=== PATIENT | female | born 1985 | race Caucasian/White ===

== ENCOUNTER 2017-12-01 08:52 | Emergency (ER) | payer MEDICAID ==
[2017-12-01 08:52] VITALS: BMI 29.0
[2017-12-01 09:21] VITALS: BP 120/73; PULSE 81; RESP 17; TEMP 97.6; O2SAT 99
--- NOTE | 2017-12-01 09:49 | ED PDOC ---
HPI: Chest Pain Time Seen by Provider: 12/01/17 09:32 Chief Complaint (Nursing): Chest Pain Chief Complaint (Provider): Chest pain History Per: Patient History/Exam Limitations: no limitations Onset/Duration Of Symptoms: Days (last night) Current Symptoms Are (Timing): Still Present Associated Symptoms: Other (nonproductive cough). denies: Dyspnea Exacerbating Factors: Deep Breathing (inspiration) Additional Complaint(s): Harshal Cedeno is a 32 year old female, with no significant past medical history, who presents to the emergency department complaining of left sided chest pain onset since last night. Patient states pain is associated with nonproductive cough and worsens on inspiration. She denies any fever, chills or shortness of breath. No further medical complaints. PMD: None provided. Past Medical History Reviewed: Historical Data, Nursing Documentation, Vital Signs Vital Signs: Last Vital Signs Temp 97.6 F 12/01/17 09:18 Pulse 81 12/01/17 09:18 Resp 17 12/01/17 09:18 BP 120/73 12/01/17 09:18 Pulse Ox 99 12/01/17 09:18 - Medical History PMH: No Chronic Diseases - Surgical History Surgical History: Appendectomy - Family History Family History: States: Unknown Family Hx - Home Medications Home Medications: Ambulatory Orders Medication Instructions Recorded oxyCODONE/Acetaminophen [Percocet 1 tab PO Q4 #0 tab 09/27/14 5/325 mg Tab] Cyclobenzaprine [Cyclobenzaprine 10 mg PO Q8 PRN #30 tab 03/03/16 HCl] Tramadol HCl [Ultram] 50 mg PO BID PRN #30 tablet 03/03/16 Albuterol HFA [Ventolin HFA 90 2 puff IH Q4H #1 puff 12/01/17 mcg/actuation (8 g)] Azithromycin [Zithromax] 250 mg PO DAILY #6 tab 12/01/17 - Allergies Allergies/Adverse Reactions: Allergies Allergy/AdvReac Type Severity Reaction Status Date / Time aspirin Allergy HEADACHE Verified 03/03/16 18:08 Review of Systems ROS Statement: Except As Marked, All Systems Reviewed And Found Negative Constitutional: Negative for: Fever, Chills Cardiovascular: Positive for: Chest Pain (left sided) Respiratory: Positive for: Cough (nonproductive). Negative for: Shortness of Breath Physical Exam - Reviewed Nursing Documentation Reviewed: Yes Vital Signs Reviewed: Yes - Physical Exam Appears: Positive for: No Acute Distress Head Exam: Positive for: ATRAUMATIC, NORMOCEPHALIC Skin: Positive for: Normal Color, Warm, Dry Eye Exam: Positive for: Normal appearance, EOMI, PERRL ENT: Positive for: Normal ENT Inspection Neck: Positive for: Painless ROM Cardiovascular/Chest: Positive for: Regular Rate, Rhythm. Negative for: Murmur Respiratory: Positive for: Normal Breath Sounds. Negative for: Respiratory Distress Gastrointestinal/Abdominal: Positive for: Normal Exam, Soft. Negative for: Tenderness Back: Positive for: Normal Inspection. Negative for: L CVA Tenderness, R CVA Tenderness, Vertebral Tenderness Extremity: Positive for: Normal ROM (upper and lower extremities). Negative for: Tenderness, Calf Tenderness, Deformity, Swelling Neurologic/Psych: Positive for: Alert, Oriented, Gait (steady). Negative for: Motor/Sensory Deficits - ECG O2 Sat by Pulse Oximetry: 99 (RA) Pulse Ox Interpretation: Normal Medical Decision Making Medical Decision Making: Time: 09:32 Initial Plan: --Chest two views (PA/LAT) [RAD] --Reevaluation ----- Scribe Attestation: Documented by Ángel Silva, acting as a scribe for Alexi Simon MD. Provider Scribe Attestation: All medical record entries made by the Scribe were at my direction and personally dictated by me. I have reviewed the chart and agree that the record accurately reflects my personal performance of the history, physical exam, medical decision making, and the department course for this patient. I have also personally directed, reviewed, and agree with the discharge instructions and disposition. Disposition - Clinical Impression Clinical Impression: Upper respiratory infection - Patient ED Disposition Is Patient to be Admitted: No Counseled Patient/Family Regarding: Studies Performed, Diagnosis, Need For Followup, Rx Given - Disposition Referrals: Dolly Rushing MD [Primary Care Provider] - Disposition: Routine/Home Disposition Time: 10:14 Condition: FAIR Prescriptions: Albuterol HFA [Ventolin HFA 90 mcg/actuation (8 g)] 2 puff IH Q4H #1 puff Azithromycin [Zithromax] 250 mg PO DAILY #6 tab Instructions: Bacterial Upper Respiratory Infection, Adult Forms: [facility] (Uzbek) Print Language: MACANESE
--- NOTE | 2017-12-01 11:49 | RAD ---
Date of service: 12/01/2017 HISTORY: cough COMPARISON: No prior. TECHNIQUE: Chest PA and lateral FINDINGS: LUNGS: No active pulmonary disease. PLEURA: No significant pleural effusion identified. No pneumothorax apparent. CARDIOVASCULAR: Normal. OSSEOUS STRUCTURES: No significant abnormalities. VISUALIZED UPPER ABDOMEN: Normal. OTHER FINDINGS: None. IMPRESSION: No acute cardiopulmonary disease appreciated.
== END 2017-12-01 11:30 | disposition home or self-care (01) ==
LOC: H.ER 08:52 → SUPCPDRO 08:52 → H.ER 11:30
DX: J06.9 Acute upper respiratory infection, unspecified (principal)

== ENCOUNTER 2018-07-08 18:16 | Emergency (ER) | payer MEDICAID ==
[2018-07-08 18:16] VITALS: BMI 29.0
[2018-07-08 18:24] VITALS: BP 125/77; PULSE 82; RESP 17; TEMP 98.8; O2SAT 100
--- NOTE | 2018-07-08 18:30 | ED PDOC ---
HPI: Influenza Chief Complaint: Cough, Cold, Congestion Chief Complaint (Provider): Cough, Cold, Congestion History Per: Patient Exam Limitations: no limitations Onset/Duration Of Symptoms: Other (1 month) Additional complaint(s):: 32 y/o female presents to the ED complaining of itchy eyes, throat, and ears for 1 month. Patient states she tried over the counter medication without relief. Patient denies any other symptoms at this time. PMD: none provided Past Medical History Reviewed: Historical Data, Nursing Documentation, Vital Signs Vital Signs: Last Vital Signs Temp 98.8 F 07/08/18 18:21 Pulse 82 07/08/18 18:21 Resp 17 07/08/18 18:21 BP 125/77 07/08/18 18:21 Pulse Ox 100 07/08/18 18:21 Primary Care Provider: Non [facility] Provider, - Surgical History Surgical History: Appendectomy - Family History Family History: States: Unknown Family Hx - Home Medications Home Medications: Ambulatory Orders Medication Instructions Recorded oxyCODONE/Acetaminophen [Percocet 1 tab PO Q4 #0 tab 09/27/14 5/325 mg Tab] Cyclobenzaprine [Cyclobenzaprine 10 mg PO Q8 PRN #30 tab 03/03/16 HCl] Tramadol HCl [Ultram] 50 mg PO BID PRN #30 tablet 03/03/16 Albuterol HFA [Ventolin HFA 90 2 puff IH Q4H #1 puff 12/01/17 mcg/actuation (8 g)] Azithromycin [Zithromax] 250 mg PO DAILY #6 tab 12/01/17 Cetirizine HCl [Zyrtec] 10 mg PO DAILY #30 tab.rapdis 07/08/18 Fluticasone Propionate [Flonase 2 spray NS DAILY #1 spray.susp 07/08/18 Allergy Relief] Pseudoephedrine [Sudafed Tab] 60 mg PO Q6 PRN #24 tab 07/08/18 - Allergies Allergies/Adverse Reactions: Allergies Allergy/AdvReac Type Severity Reaction Status Date / Time aspirin Allergy HEADACHE Verified 03/03/16 18:08 Review of Systems ROS Statement: Except As Marked, All Systems Reviewed And Found Negative Eyes: Positive for: Other (Itchy eyes.) ENT: Positive for: Other (Itchy throat and ears.) Physical Exam - Reviewed Nursing Documentation Reviewed: Yes Vital Signs Reviewed: Yes - Physical Exam Appears: Positive for: Well, Non-toxic, No Acute Distress Head Exam: Positive for: ATRAUMATIC, NORMAL INSPECTION, NORMOCEPHALIC Skin: Positive for: Normal Color, Warm, Dry Eye Exam: Positive for: Normal appearance, EOMI, PERRL, Periorbital swelling (Mild swelling bilateral eyelids.) ENT: Positive for: Normal ENT Inspection Neck: Positive for: Normal, Painless ROM Cardiovascular/Chest: Positive for: Regular Rate, Rhythm. Negative for: Murmur Respiratory: Positive for: Normal Breath Sounds. Negative for: Wheezing Gastrointestinal/Abdominal: Positive for: Normal Exam, Soft. Negative for: Tenderness Back: Positive for: Normal Inspection. Negative for: L CVA Tenderness Extremity: Positive for: Normal ROM Neurological/Psych: Positive for: Awake, Alert, Normal Tone, Oriented (x3). Negative for: Motor/Sensory Deficits - ECG O2 Sat by Pulse Oximetry: 100 Disposition - Clinical Impression Clinical Impression: Seasonal allergies - Patient ED Disposition Is Patient to be Admitted: No - Disposition Referrals: [facility] [Outside] Disposition: Routine/Home Disposition Time: 18:41 Condition: FAIR Additional Instructions: YOU CAN TRY 'NETTYPOT' WITH DISTILLED WATER FROM PHARMACY TO HELP RELIEVE NASAL CONGESTION Prescriptions: Cetirizine HCl [Zyrtec] 10 mg PO DAILY #30 tab.rapdis Fluticasone Propionate [Flonase Allergy Relief] 2 spray NS DAILY #1 spray.susp Pseudoephedrine [Sudafed Tab] 60 mg PO Q6 PRN #24 tab PRN Reason: Nasal Congestion Instructions: Seasonal Allergies in Adults Forms: [facility] ED School/Work Excuse Print Language: VIETNAMESE
== END 2018-07-08 18:43 | disposition home or self-care (01) ==
LOC: H.ER 18:16
DX: J30.2 Other seasonal allergic rhinitis (principal)